=== PATIENT | female | born 1960 | race Caucasian/White ===

== ENCOUNTER → 2020-09-29 | Outpatient (CLI) | payer OTHER ==
[~2020-09-29] MED LIST: HYDR-2761 PO
== END ==
LOC: LAB 13:29
PROVIDERS: ATTEND Orthopaedic Surgery
DX: Z01.812 Encounter for preprocedural laboratory examination (principal); Z20.822 Contact with and (suspected) exposure to COVID-19
CPT/HCPCS: U0003

== ENCOUNTER 2020-10-02 11:25 | Day surgery (SDC) | payer OTHER ==
--- NOTE | 2020-10-01 16:18 | PDOC1 ---
History and Physical Date of Admission Date of Admission 10/02/2020 Identification/Chief Complaint Chief Complaint Right ankle fracture Source Source: Chart review, Patient History of Present Illness History of Present Illness 60-year-old new patient here with right ankle pain. 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 She was seen at [facility] urgent care clinic on 09/26/20 after slipping on ice at home, falling backwards, and catching her right foot under her. Immediately after this she had severe lateral ankle pain with swelling; we reviewed a photo on her phone that showed m assive swelling. She locates severe lateral pain that is making sleeping difficult; she doesn't believe her hydrocodone is helping enough. Denies smoking. Denies any numbness or tingling symptoms past baseline. Ambulating with crutches. Past Medical History Cardiovascular: HTN Family History Family History: Coronary Artery Disease Social History Smoke: No ALCOHOL: occassional Current Medications Current Medications Current Medications Ondansetron HCl (Zofran) 4 mg PRN Q6HRS PRN IV NAUSEA/VOMITING; Start 10/02/20 at 07:00; Stop 10/03/20 at 06:59 Fentanyl Citrate (Fentanyl 2ml Vial) 25 mcg PRN Q5MIN PRN IV MILD PAIN 1-3; Start 10/02/20 at 07:00; Stop 10/03/20 at 06:59 Fentanyl Citrate (Fentanyl 2ml Vial) 50 mcg PRN Q5MIN PRN IV MODERATE TO SEVERE PAIN; Start 10/02/20 at 07:00; Stop 10/03/20 at 06:59 Morphine Sulfate (Morphine Sulfate) 1 mg PRN Q10MIN PRN IV SEVERE PAIN 7-10; Start 10/02/20 at 07:00; Stop 10/03/20 at 06:59 Ringer's Solution 1,000 ml @ 30 mls/hr Q24H IV ; Start 10/02/20 at 07:00; Stop 10/02/20 at 18:59 Lidocaine HCl (Xylocaine-Mpf 1% 2ml Vial) 2 ml PRN 1X PRN ID PRIOR TO IV START; Start 10/02/20 at 07:00; Stop 10/03/20 at 06:59 Hydromorphone HCl (Dilaudid) 0.5 mg PRN Q10MIN PRN IV SEV PAIN, Second choice; Start 10/02/20 at 07:00; Stop 10/03/20 at 06:59 Prochlorperazine Edisylate (Compazine) 5 mg PACU PRN PRN IV NAUSEA, MRX1; Start 10/02/20 at 07:00; Stop 10/03/20 at 06:59 Clindamycin Phosphate 50 ml @ 100 mls/hr ONCE ONCE IV ; Start 10/02/20 at 06:00; Stop 10/02/20 at 06:29 Active Scripts Active Reported Hydrocodone-Apap 5-325 (Hydrocodone Bit/Acetaminophen) 1 Tab Tablet 1 Tab PO PRN Q6HRS PRN Allergies Allergies: Coded Allergies: Penicillins (Verified Allergy, Unknown, Hives, 09/29/20) Physical Exam General: Alert, Cooperative HEENT: Atraumatic Lungs: Normal air movement Heart: RRR Abdomen: Soft Extremities: Other (Patient is unable to weight bear on the RIGHT ankle. The overall alignment is swollen and slightly grossly enlarged at the joint. There is diffuse swelling laterally at the distal fibula with slight ecchymosis. There is focal tenderness of the distal fibula at the lateral fracture site. Some palpable osteophytes at the dorsum of the mid foot. Minimal medial tenderness. The deltoid ligament is mildly tender, swollen, and slightly ecchymotic. The syndesmosis ligaments are nontender. External rotation stress testing shows minimal pain at the ankle joint. Motor strength is decreased mobility due to pain with no focal neurologic deficit. Active range of motion at the ankle is decreased. Aside from the ecchymosis, the skin, pulses, and sensation are normal at the ankle, foot, and toes. ) Skin: No breakdown, No significant lesion Neuro: Normal speech, Sensation intact Images Images [address] [id number] IMAGING REPORT Signed PATIENT: FREDI JULIEN ACCOUNT: [id number] : 1960 LOCATION: [facility] AGE: 60 SEX: F EXAM STATUS: REG CLI ORD. PHYSICIAN: CODI JONES APRN REASON: FELL ON ICE PROCEDURE: ANKLE RIGHT 3V 3 views right ankle 09/26/2020 10:37 AM Indication: Reason: FELL ON ICE / Spl. Instructions: / History: Comparison: None Findings: There is an oblique, acute fracture of the distal fibula with mild lateral and posterior displacement. There is a defect in the medial aspect of the talar dome consistent with osteochondral injury. There appears to be degenerative change of the tibiotalar articulation best seen on lateral view. Soft tissue edema is noted about the ankle particularly laterally. The joint effusion is present. No dislocation is seen. IMPRESSION: 1. Distal fibular fracture 2. 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 Consider follow-up MRI for further characterization as clinically indicated Electronically signed by: Luis Fernando Flores MD (09/26/2020 10:50 AM) [id number] DICTATED AND SIGNED BY: LUIS FERNANDO FLORES MD DATE: 09/26/20 1043 CC: TATE OWEN; CODI JONES APRN VTE Prophylaxis Ordered VTE Prophylaxis Devices: Yes VTE Pharmacological Prophylaxi: Yes Assessment/Plan Assessment/Plan She has a displaced ankle fracture of the lateral malleolus. There is an osteochondral defect as well. There are some osteophytes at the tibiotalar joint, so it is difficult to tell if the osteochondral defect is related to the acute injury which could be since she describes the ankle being severely deformed at the moment of injury, or could be more of a chronic osteochondral defect. The radiologist did not specify whether this is acute or chronic and I do not think it is possible to know looking at the x-rays. I might be able to tell better at the time of surgery at which point I would recommend visual examination of the talus during the ORIF of the fibula. This should be fairly easy to visualize and if there is a loose fragment of the talus I will remove it. We discussed osteochondral allografting but I do not recommend ostechondral allograft in the acute fracture setting. With the underlying osteophytes, perhaps would never recommend an osteochondral allograft. We discussed the risks benefits and alternatives of ankle fracture surgery. We discussed the potential risks of infection, neurovascular injury, bleeding, scarring, blood clots, hardware failure, need for hardware removal, malunion or nonunion, or other potential surgical or anesthetic complications. All of her questions about surgery were answered and she desires to proceed. Justifications for Admission Other Justification LATOYA COX MD Oct 01, 2020 16:18
[~2020-10-02] VITALS: Ht 154.9 cm; Wt 84.8 kg
[~2020-10-02 11:25] MED LIST changes: +CLINDAMYCIN 900MG PREMIX 50 ML IV ONE; +HYDROmorphone 2 MG/ML VIAL IV PRN; +IV RINGERS,LACTATED 1000ML 1,000 ML IV SCH; +LIDOCAINE 1% PF 2 ML VIAL. ID PRN; +LIDOCAINE 2% PF 5 ML VIAL. ONE; +ONDANSETRON PF 4 MG/2 ML VIAL. IV PRN; +PROCHLORPERAZINE 10 MG/2 ML VIAL. IV PRN; +PROPOFOL 10 MG/ML (20ML) VIAL. IV ONE; +ROCURONIUM 50 MG/5 ML VIAL. ONE; +SUCCINYLCHOLINE 200 MG/10 ML VIAL. ONE; +fentaNYL PF VIAL 100 MCG/2 ML VIAL IV PRN; +fentaNYL PF VIAL 100 MCG/2 ML VIAL ONE
[2020-10-02] MEDS ORDERED: BUPIVACAINE-EPI 0.25%-1:200000 MPF 30 ML VIAL. INJ ONE (12:00)
[2020-10-02] MEDS ORDERED: GLYCOPYRROLATE 1 MG/5 ML VIAL. ONE (13:02)
[2020-10-02] MEDS ORDERED: DEXAMETHASONE SOD PHOS 4 MG/ML VIAL ONE (13:05)
[2020-10-02] MEDS ORDERED: ONDANSETRON PF 4 MG/2 ML VIAL. ONE (13:05)
[2020-10-02] MEDS ORDERED: SEVOFLURANE 31 TO 60 MINUTES. IH ONE (13:39)
[2020-10-02] MEDS ORDERED: KETOROLAC 30 MG/ML VIAL. ONE (13:39)
--- NOTE | 2020-10-02 13:57 | PDOC4 ---
Operative Note Operative Note Date of Procedure: October 02, 2020 Pre-Op Diagnosis: Displaced fracture of lateral malleolus of right fibula, initial encounter for closed fracture - S82.61XA Post-Op Diagnosis: same Procedure: right ankle open treatment of distal fibular fracture (lateral malleolus) with internal fixation CPT 11717 Anesthesia Type: General Surgeon: Latoya Johns MD Employee Operations Examiner: ASUNCION Dumont EBL: 100 mL Specimens Obtained: none Drains: none Complications: none Tourniquet time: 20 minutes Tourniquet pressure: 300 mm Hg Implants: Synthes stainless small fragment 3.5 mm INDICATIONS FOR PROCEDURE: The patient is a 60-year-old with a displaced unstable right ankle fracture. She also has an osteochondral talar dome lesion which might require intraoperative excision. The patient and I discussed the risks and benefits of operative treatment. Surgical fixation likely will give a better long-term outcome. We talked about the risks of the operative fixation such as the risks of bleeding, infection, blood clots, need for hardware removal, stiffness or other potential surgical or anesthetic complications. All of her questions about surgery were answered and she desired to proceed. Written consent was obtained. PROCEDURE IN DETAIL: The patient was identified in the preoperative holding area. The correct right lower extremity was marked by me. The patient was taken to the operating room, where a general anesthetic was used. Preoperative antibiotics were given intravenously. A timeout procedure was performed. A padded tourniquet was used on the upper right thigh. A bump was placed under the right buttock. The limb was prepared in sterile fashion with ChloraPrep solution, and sterile drapes were applied with a sterile glove over the toes and heel. An Esmarch bandage was used to exsanguinate the limb and the tourniquet was inflated. The direct lateral approach to the distal fibula was used. Sharp dissection was used and Bovie electrocautery was used as needed for hemostasis. The fracture was easily identified and exposed. The fracture was gapped open with traction, and fracture hematoma was cleared with curettes, rongeurs and irrigation. The fracture was opened more widely with a tenaculum clamp, and the talus was evaluated. There is no hemarthrosis or evidence of intra-articular fracture injury. Copious saline irrigation was used across the talus, to make sure there were no loose intra-articular fragments. I could not easily visualize the area of medial osteochondral lesion but I suspect based on my examination of the joint that this is a chronic finding, and that if there was an acute fracture I would have seen hemarthrosis and other clot within the joint. I then used longitudinal traction and internal rotation to help reduce the fracture, and a lobster claw bone clamp was used to now reduce the fracture. An interfragmentary lag screw was placed using a threaded hole and a gliding hole, across the fracture site to partially stabilize it, so that the bone clamp could be removed. I applied a 3.5 mm one-third tubular plate laterally, and contour ed the distal portion of the plate with a plate booth. Cortical screws were placed initially to stabilize the plate and compress it to the bone and help maintain the reduction. Cancellous screws were then placed in distal fragment, and the bone clamps were able to be removed. Satisfactory reduction and fixation was obtained of the fibula which was confirmed using the image inte nsifier. I now stressed the syndesmosis and the medial clear space was stable. The tourniquet was released. Copious saline irrigation was used. Bovie electrocautery was used for hemostasis. Local anesthetic, 30 mL of 0.25% bupivacaine with epinephrine with epinephrine was injected into the skin edges. Needle and sponge counts were correct. The incision was closed in layers. I c losed the deep layers with #1 Vicryl and #0 Vicryl. My environmental services assistant used #2-0 Vicryl in the subcutaneous tissues, and emiliano in the skin. Xeroform and a sterile dressing and splint were applied. There were no apparent complications. LATOYA JOHNS MD Oct 02, 2020 13:57
[2020-10-02] MEDS ORDERED: IPRATRPIUM/ALBUTEROL 0.5/2.5MG 3 ML NEBU. ONE (13:58)
[2020-10-02] MEDS ORDERED: fentaNYL PF VIAL 100 MCG/2 ML VIAL ONE (14:14)
[2020-10-02] MEDS: fentaNYL PF VIAL 100 MCG/2 ML VIAL IV PRN ×2 (14:16→14:25)
[2020-10-02] MEDS ORDERED: MORPHINE SULFATE 2 MG/ML VIAL. ONE (14:34)
[2020-10-02] MEDS ORDERED: oxyCODONE/APAP 5/325 1 TAB TABLET PO PRN ×2 (14:45→15:00)
[2020-10-02] MEDS ORDERED: oxyCODONE/APAP 5/325 1 TAB TABLET ONE (14:46)
[2020-10-02] MEDS: MORPHINE SULFATE 2 MG/ML VIAL. IV PRN ×2 (14:50→15:03)
[2020-10-02 15:06] VITALS: BP 163/82
== END 2020-10-02 16:15 | disposition home or self-care (01) ==
LOC: SURG 11:25
PROVIDERS: ATTEND Orthopaedic Surgery
DX: S82.61XA Displaced fracture of lateral malleolus of right fibula, initial encounter for closed fracture (principal); I10 Essential (primary) hypertension; E66.9 Obesity, unspecified; Z79.899 Other long term (current) drug therapy; Z98.890 Other specified postprocedural states; Z88.0 Allergy status to penicillin; Z72.89 Other problems related to lifestyle; X58.XXXA Exposure to other specified factors, initial encounter; Y93.89 Activity, other specified; Y92.89 Other specified places as the place of occurrence of the external cause; Y99.8 Other external cause status
CPT/HCPCS: 27792; 97116; 97162; C1713; J1100; J1885; J2270; J2405; J2704; J3010; J3490; J0330